=== PATIENT | male | born 1995 | race Caucasian/White ===

== ENCOUNTER 2019-04-01 18:55 | Emergency (ER) | payer OTHER ==
[~2019-04-01] VITALS: Ht 188 cm; Wt 83.9 kg
[2019-04-01] MEDS ORDERED: LIDOCAINE 2% 20 ML VIAL. IJ ONE (19:15)
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
[2019-04-01 19:27] LABS: BASO % 0 % (0-3); EOS % 1 % (0-3); HEMATOCRIT 44.1 % (39.0-53.0); HEMOGLOBIN 14.8 g/dL (13.0-17.5); LYMPH % 30 % (24-48); MEAN CORPUSCULAR HEMOGLOBIN 30 pg (25-35); MEAN CORPUSCULAR HGB CONC 34 g/dL (31-37); MEAN CORPUSCULAR VOLUME 88 fL (79-100); MONO # 0.7 x10^3/uL (0.0-1.1); MONO % 7 % (0-9); NEUT # 6.1 x10^3uL (1.8-7.7); NEUT % 62 % (31-73); PLATELET COUNT 225 x10^3/uL (140-400); RED BLOOD COUNT 4.99 x10^6/uL (4.30-5.70); RED CELL DISTRIBUTION WIDTH 12.3 % (11.5-14.5); WHITE BLOOD COUNT 9.8 x10^3/uL (4.0-11.0)
[2019-04-01 19:37] LABS: GFR 91.8; POTASSIUM 3.4 mmol/L (3.5-5.1)
[2019-04-01 19:44] LABS: ALBUMIN 4.5 g/dL (3.4-5.0); ALBUMIN/GLOBULIN RATIO 1.4 (1.0-1.7); TOTAL BILIRUBIN 0.4 mg/dL (0.2-1.0); TOTAL PROTEIN 7.7 g/dL (6.4-8.2)
[2019-04-01] MEDS ORDERED: BACITRACIN TOPICAL OINT 14GM TUBE. TP STA (19:53)
[2019-04-01] MEDS ORDERED: NEOMY/BACITR/POLYMYXIN OINT PACKET. TP ONE (19:57)
[2019-04-01] MEDS ORDERED: HYDR-3164 PO (20:30)
[2019-04-01 21:14] VITALS: BP 148/73
--- NOTE | 2019-04-02 06:56 | EKG ---
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
== END 2019-04-01 21:30 | disposition home or self-care (01) ==
LOC: ER 18:55
DX: S01.81XA Laceration without foreign body of other part of head, initial encounter (principal); S60.512A Abrasion of left hand, initial encounter; S60.511A Abrasion of right hand, initial encounter; S40.212A Abrasion of left shoulder, initial encounter; S40.211A Abrasion of right shoulder, initial encounter; S80.212A Abrasion, left knee, initial encounter; S80.211A Abrasion, right knee, initial encounter; G89.29 Other chronic pain; M54.2 Cervicalgia; M25.571 Pain in right ankle and joints of right foot; R51 Headache; I45.10 Unspecified right bundle-branch block; R00.0 Tachycardia, unspecified; Z88.0 Allergy status to penicillin; V86.69XA Passenger of other special all-terrain or other off-road motor vehicle injured in nontraffic accident, initial encounter; Y93.89 Activity, other specified; Y92.488 Other paved roadways as the place of occurrence of the external cause; Y99.8 Other external cause status
CPT/HCPCS: 12013; 36415; 70450; 70486; 71045; 72125; 73030; 73100; 73610; 80053; 85025; 93005; 99285; G0480; J2001

== ENCOUNTER 2019-04-06 09:58 | Emergency (ER) | payer OTHER ==
[~2019-04-06] VITALS: Ht 188 cm; Wt 86.2 kg
[~2019-04-06 09:58] MED LIST: HYDR-3164 PO
[2019-04-06 10:03] VITALS: BP 140/74
--- NOTE | 2019-04-06 10:44 | PHYS DOC ---
Past Medical History Past Medical History: No Pertinent History Past Surgical History: Tonsillectomy, Other Additional Past Surgical Histo: fistula removed from buttocks Additional Information: 2 cigarettes daily Alcohol Use: Occasionally Drug Use: None Adult General Chief Complaint Chief Complaint: SUTURE/STAPLE REMOVAL HPI HPI Patient is a 23 year old male who presents for suture removal. Patient had sutures placed on his right eyebrow and left chin 5 days ago. Denies any issues with the wounds healing. Review of Systems Review of Systems Constitutional: Denies fever or chills [] Integument: Visit for suture removal Neurologic: Denies headache, focal weakness or sensory changes [] All other systems were reviewed and found to be within normal limits, except as documented in this note. Allergies Allergies Allergies Coded Allergies Type Severity Reaction Last Updated Verified Penicillins Allergy Intermediate 04/01/19 Yes Physical Exam Physical Exam Constitutional: Well developed, well nourished, no acute distress, non-toxic appearance. [] Skin: Right upper eyebrow with well approximated laceration site with 6 sutures. No signs of infection on the laceration site. Left ellison with well approximated laceration site with 3 stitches, no signs of infection stitches were removed by me. Back: No tenderness, no CVA tenderness. [] Extremities: No tenderness, no cyanosis, no clubbing, ROM intact, no edema. [] Neurologic: Alert and oriented X 3, normal motor function, normal sensory function, no focal deficits noted. [] Psychologic: Affect normal, judgement normal, mood normal. [] Current Patient Data Vital Signs Vital Signs Date Time Temp Pulse Resp B/P (MAP) Pulse Ox O2 Delivery O2 Flow Rate FiO2 04/06/19 10:03 98.2 70 16 140/74 (96) 99 Room Air 98.2 EKG EKG [] Radiology/Procedures Radiology/Procedures [] Course & Med Decision Making Course & Med Decision Making Pertinent Labs and Imaging studies reviewed. (See chart for details) This is a 23-year-old male patient who presents to the ED today for suture removal from the right eyebrow and left chin which was done by me. Discharged to home. Follow-up with PCP as needed. Dragon Disclaimer Dragon Disclaimer This electronic medical record was generated, in whole or in part, using a voice recognition dictation system. Departure Departure Impression: Primary Impression: Visit for suture removal Disposition: HOME, SELF-CARE Condition: STABLE Referrals: UNKNOWN PCP NAME (PCP) follow up with your doctor as needed Patient Instructions: Suture Removal-Brief Additional Instructions: We removed stitches from your face. Keep the area clean and dry. Please apply Neosporin to the chin for 7 days. Please follow-up with your doctor as needed. ALINA MORRIS PROSTHETIC AIDE Apr 06, 2019 10:44
== END 2019-04-06 11:00 | disposition home or self-care (01) ==
LOC: ER 09:58
DX: S01.111D Laceration without foreign body of right eyelid and periocular area, subsequent encounter (principal); S01.81XD Laceration without foreign body of other part of head, subsequent encounter; F17.210 Nicotine dependence, cigarettes, uncomplicated; Z90.89 Acquired absence of other organs; Z88.0 Allergy status to penicillin; X58.XXXD Exposure to other specified factors, subsequent encounter
CPT/HCPCS: 99281